=== PATIENT | male | born 1945 | race Caucasian/White ===

== ENCOUNTER → 2019-10-30 | Outpatient (CLI) | payer MEDICARE, OTHER ==
--- NOTE | 2019-10-30 14:47 | Diagnostic Imaging Report ---
INDICATION: Left leg pain. TIME OF EXAM: 2:35 PM. TECHNIQUE: Frontal and lateral views of the lumbar spine were obtained. FINDINGS: There is some straightening of the normal lumbar lordotic curvature. The alignment is normal. The vertebral body heights are maintained. No acute compression fracture is seen. There is significant degenerative disc disease at the L4-5 level with significant disc space narrowing as well as marginal osteophyte formation. There is multilevel facet arthropathy. IMPRESSION: Lumbar spondylosis and facet arthropathy. No acute bony abnormality is detected. Dictated by: Dictated on workstation # [id number]
== END ==
LOC: RAD FS 14:22
PROVIDERS: ATTEND Family Medicine
DX: M47.816 Spondylosis without myelopathy or radiculopathy, lumbar region (principal)
CPT/HCPCS: 72100